=== PATIENT | male | born 1990 | race Caucasian/White ===

== ENCOUNTER 2018-08-02 03:05 | Emergency (ER) | payer OTHER, SELFPAY ==
[2018-07-02 09:33] VITALS: BMI 28.4
[2018-08-02 03:07] VITALS: BP 127/69; PULSE 49; RESP 19; TEMP 36.4; O2SAT 100; BMI 29.1
--- NOTE | 2018-08-02 03:11 | CT_ITS ---
STUDY: CT BRAIN WITHOUT CONTRAST REASON FOR EXAM: Male, 28 years old. Head injury. Hematoma of the posterior head. RADIATION DOSAGE (If Supplied By Facility): CTDIvol = ( 44.99 ) mGy, DLP = ( 779.24 ) mGycm TECHNIQUE: Transaxial CT imaging of the brain was performed without administration of intravenous contrast material. Individualized dose optimization techniques were used for this CT. COMPARISON: None. FINDINGS: There is a posterior scalp hematoma. Normal calvarium. Normal size ventricles and extra-axial spaces for the patient's age. Normal white matter tracts of the cerebral hemispheres. Normal basal ganglia and thalami. Normal brainstem. Normal cerebellum. There is no intracranial hemorrhage. There are no findings of an acute ischemic infarction. Normal visualized paranasal sinuses. CT/Brain/Head without Contrast IMPRESSION: Normal unenhanced CT scan of the brain. Electronically Signed: Oswaldo Robertson MD at 3:53 EST , Service support ,
--- NOTE | 2018-08-02 03:12 | EKG12_ITS ---
Test Reason : SYNCOPE Blood Pressure : / mmHG Vent. Rate : 048 BPM Atrial Rate : 048 BPM P-R Int : 188 ms QRS Dur : 102 ms QT Int : 458 ms P-R-T Axes : 035 033 023 degrees QTc Int : 409 ms Sinus bradycardia RSR' or QR pattern in V1 suggests right ventricular conduction delay Borderline ECG Confirmed by CHARI LOTT, PANCHO ([id number]), story editor TREV MALONEY ([id number]) on 08/05/2018 8:16:31 AM Referred By: HEIDY Confirmed By:PANCHO MARCELINO MD
--- NOTE | 2018-08-02 03:17 | ED.DCSUM_ITS ---
- ER Visit Summary Date of Service: 08/02/18 Chief Complaint: [] Syncope with head injury History of Present Illness: The patient is a 28 M who had a syncopal episode just prior to arrival. His is giving to their baby upstairs. He was standing next to her holding her leg when she started to push. He got lightheaded and passed out hit the back of his head on the ground. He has had this happen before. 2 weeks ago when he got into the shower after doing the driveway he had a lightheaded episode and passed out. He stated that IV starts and blood draws also make him lightheaded. He is never been diagnosed with vasovagal syncope. He is never had had it happen otherwise. Currently he has some pain in the back of his head where he struck on the ground and suffered a goose egg. 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 No cardiac problems in the past. Physical Examination: [] Vital signs reviewed General: Well-nourished well-developed Head: Normocephalic goose egg hematoma the back of his head measuring 3 x 3 cm Eyes: Pupils equal round and reactive to light extraocular movements intact ENT: TMs clear no hemotympanum no trauma Neck: Nontender full range of motion Cardiovascular: Regular tachycardia with normal rhythm no murmurs normal S1-S2 Respiratory: No distress clear to auscultation bilaterally chest nontender Abdomen: Soft nontender nondistended normal bowel sounds no masses Back: Nontender no CVA tenderness Extremities: Nontender active range of motion ?4 extremities no trauma Skin: Normal color no trauma Neuro alert oriented cranial nerves II through XII intact normal strength sensation reflexes Test Results: [] Emergency Department Course and Treatment: [] EKG shows sinus bradycardia at a rate of 48. No acute blocks noted. CT head obtained. It is negative. Patient felt better after treatment ambulated well. He states his heart rate normally runs in the low 50s. He never gets lightheaded when he works out. I think he just had a vasovagal episode. He will follow-up with cardiology as an outpatient for his sinus bradycardia. Understands that he has to be careful due to his baseline sinus bradycardia Treatment Plan: [] Disposition: [] Impression: [] Vagal syncope Sinus bradycardia Scalp hematoma This note was generated with [employer] software. It may contain incorrect words, spelling, and punctuation that were not noted in review of the chart prior to signing ED Disposition - Plan for ED Patient: Referrals: Care Physician,No Primary [Primary Care Provider] -
[2018-08-02 03:35] LABS: Bedside Glucose 86 mg/dL (70-110)
--- NOTE | 2018-08-02 04:02 | ED.DEP ---
ED Disposition - Plan for ED Patient: Disposition: Home or Assisted Living Instructions: ED Syncope Vasovagal Referrals: Thai Bautista MD [STAFF PHYSICIAN] - Slick Umana MD [STAFF PHYSICIAN] -
--- NOTE | 2018-08-02 04:03 | ED.RN ---
TEST AMBULATED IN HALLWAY, DENIES DIZZINESS.
[2018-08-02] MEDS: Ibuprofen 400 MG Tablet 800 MG PO (04:08)
[2018-08-02 04:12] VITALS: BP 136/71; PULSE 45; RESP 16; O2SAT 100
== END 2018-08-02 04:12 | disposition home or self-care (01) ==
PROVIDERS: Emergency Provider Emergency Medicine
DX: R55 Syncope and collapse (principal); R00.1 Bradycardia, unspecified; S00.03XA Contusion of scalp, initial encounter; W19.XXXA Unspecified fall, initial encounter; Y93.9 Activity, unspecified; Y92.9 Unspecified place or not applicable; Y99.9 Unspecified external cause status
CPT/HCPCS: 70450; 82962; 93005; 99284

== ENCOUNTER → 2018-08-10 10:11 | Outpatient (CLI) | payer OTHER, SELFPAY ==
[2018-08-10 09:14] VITALS: BMI 29.7
--- NOTE | 2018-08-10 10:14 | ECHOD_ITS ---
Reason For Study: Syncope/Near Syncope Procedure This was a 2D Doppler, Color Flow transthoracic echocardiogram. Exam performed in department. Left Ventricle Normal LV size. Left ventricular systolic function is normal. The estimated ejection fraction is 60 %. No evidence for diastolic dysfunction. Right Ventricle Normal RV size. Normal systolic function. Atria Normal left atrium. Normal right atrium. Mitral Valve Equivocal mitral valve prolapse. Mild (1+) eccentric mitral valve insufficiency. Tricuspid Valve Normal tricuspid valve. Aortic Valve Normal aortic valve. Trisinus/trileaflet aortic valve. Pulmonic Valve Normal pulmonic valve. Great Vessels Normal aortic root. The pulmonary artery is normal size. Normal inferior vena cava. Pericardium/Pleural No pericardial effusion. MMode/2D Measurements & Calculations LVIDd: 5.4 cm IVSd: 1.1 cm Ao root diam: 2.5 cm LVIDs: 3.5 cm LVPWd: 1.1 cm RVDd: 4.9 cm FS: 35.8 % LAV(MOD-bp): 59.7 ml LVAd ap4: 39.7 cm2 SV(MOD-sp4): 83.3 ml LAV(MOD-bp) Indexed: 28.2 ml/m2 EDV(MOD-sp4): 145.2 ml LAV(MOD-sp2): 65.2 ml EDV(sp4-el): 147.1 ml LAV(MOD-sp4): 54.7 ml LVAs ap4: 23.6 cm2 ESV(MOD-sp4): 62.0 ml ESV(sp4-el): 64.4 ml EF(MOD-sp4): 57.3 % EF(sp4-el): 56.2 % SV(sp4-el): 82.7 ml LA A4 area: 19.3 cm2 LA dimension(2D): 3.5 cm RA A4 area: 20.9 cm2 Doppler Measurements & Calculations MV E max ashish: 89.2 cm/sec Lat Peak E' Ashish: 19.0 cm/sec Med Peak E' Ashish: 11.8 cm/sec MV A max ashish: 45.6 cm/sec E/E' lat: 4.7 E/E' med: 7.6 MV E/A: 2.0 Ao V2 max: 135.9 cm/sec LV V1 max: 122.5 cm/sec PA V2 max: 147.3 cm/sec Ao max P.4 mmHg LV V1 max P.0 mmHg PA V2 mean: 101.3 cm/sec Ao V2 mean: 99.4 cm/sec PA V2 VTI: 34.1 cm Ao mean P.3 mmHg Ao V2 VTI: 31.7 cm TR max ashish: 229.4 cm/sec TR max P.0 mmHg Interpretation Summary Normal LV size. Left ventricular systolic function is normal. The estimated ejection fraction is 60 %. No evidence for diastolic dysfunction. Equivocal mitral valve prolapse. Mild (1+) eccentric mitral valve insufficiency. Ordering Physician: Slick Umana Referring Physician: Slick Umana Performed By: Cinthia Veronica, REMBERTO, RVT
== END ==
PROVIDERS: Referring Provider Internal Medicine Cardiovascular Disease; Visit Provider Internal Medicine Cardiovascular Disease
DX: R55 Syncope and collapse (principal)
CPT/HCPCS: 93306

== ENCOUNTER → 2019-06-09 11:02 | Outpatient (CLI) | payer OTHER, SELFPAY ==
[2019-06-09 10:24] VITALS: BMI 29.7
[2019-06-09 13:30] LABS: Color, Urine Straw (Yellow); Glucose, Dipstick Normal (Normal); Ketone-Dipstick Negative (Negative); Leukocyte Esterase-Dipstick Negative /ul (Negative); Nitrite-Dipstick Negative (Negative); Occult Blood-Urine Negative /ul (Negative); Protein-Dipstick Negative (Negative); Urine Bilirubin Dipstick Negative (Negative); Urine Clarity Cloudy (Clear); Urine Urobilinogen Normal (Normal)
[2019-06-09 13:40] LABS: Hematocrit 42.1 % (40-54); Hemoglobin 13.2 g/dL (13.0-16.5); Mean Corp Hgb Conc 31.4 g/dL (32-36); Mean Corpuscular Volume 92.5 fL (80-94); Mean Platelet Vol. 12.3 fl (6.2-12.0); Platelet Count 225 K/mm3 (150-450); RBC Distribution Width CV 12.4 % (11.6-14.6); Red Blood Count 4.55 M/mm3 (4.6-6.2); White Blood Count 6.3 K/mm3 (4.4-11.0)
[2019-06-09 13:43] LABS: ALB/GLOB Ratio 1.4 RATIO (0.9-2.4); AST(SGOT) 28 U/L (15-37); Alanine Aminotransfer ALT/SGPT 38 U/L (16-61); Albumin, Serum 4.1 g/dL (3.2-5.0); Alkaline Phosphatase 76 U/L (45-117); Anion Gap 1 (5-15); BUN 16 mg/dL (7-18); BUN/Creat Ratio 17.8 RATIO (10-20); Calcium,Total 9.2 mg/dL (8.5-10.1); Chloride 110 mmol/L (98-107); EST Glomerular Filtration Rate 107 mL/min (>60); Est Glom Filt Rate - Afr Amer 130 mL/min (>60); Glucose 88 mg/dL (74-106); Potassium 4.7 mmol/L (3.5-5.1); Protein, Total 7.1 g/dL (6.4-8.2); Sodium Level 143 mmol/L (136-145)
[2019-06-09 13:45] LABS: Amphetamine Urine VISTA NEGATIVE (<1000 ng/mL); Barbiturate Urine VISTA NEGATIVE (< 200 ng/mL); Benzodiazepine Urine VISTA NEGATIVE (< 200 ng/mL); Cocaine Urine VISTA NEGATIVE (< 300 ng/mL); Ecstacy Urine VISTA NEGATIVE (< 500 ng/mL); Methadone Urine VISTA NEGATIVE (< 300 ng/mL); PCP Urine VISTA NEGATIVE (< 25 ng/mL); THC Urine VISTA NEGATIVE (< 50 ng/mL); Vista UDS pH Range 5
[2019-06-09 13:56] LABS: Alcohol, Blood (Medical)-Serum < 3.0 mg/dL
[2019-06-09 13:56] LABS: Mucous, Urine 0 SEEN /hpf (<or=2+); Red Blood Cells-Urine 0 SEEN /hpf (0-5); Squamous Epithelial Cells - UA 0 SEEN /hpf (0-5); White Blood Cells 0 SEEN /hpf (0-5)
[2019-06-09 13:57] LABS: Amorphous Sediment 4+; Bacteria 4+ /hpf (None Seen)
[2019-06-09 14:29] LABS: HIV - WCH Non-Reactive (Nonreactive)
== END ==
PROVIDERS: PCP Internal Medicine; Visit Provider Nurse Practitioner Family
DX: Z00.00 Encounter for general adult medical examination without abnormal findings (principal)
CPT/HCPCS: 36415; 80053; 80307; 80320; 81001; 85027; 86703; G0480

== ENCOUNTER → 2024-02-03 | Outpatient (CLI) | payer OTHER, SELFPAY ==
[2024-02-03 12:44] LABS: Absolute Lymphocyte Count 1.72 X10^3/uL (0.83-4.51); Absolute Neutrophil Count 3.2 X10^3/uL (2.0-7.7); Basophil# 0.07 X10^3/uL; Basophil% 1.2 % (0-1); Eosinophil# 0.08 X10^3/uL; Eosinophils% 1.4 % (0-5); Hematocrit 43.1 % (40-54); Hemoglobin 13.6 g/dL (13.0-16.5); Lymphocyte # 1.72 X10^3/ul (0.83-4.51); Lymphocyte % 29.6 % (19-41); Mean Corp Hgb Conc 31.6 g/dL (32-36); Mean Corpuscular Hgb 28.5 pg (27.0-32.0); Mean Corpuscular Volume 90.2 fL (80-94); Monocyte# 0.76 X10^3/uL; Monocyte% 13.1 % (0-10); NRBC Flagged by Analyzer 0 % (0-5); Neutrophil # 3.17 X10^3/uL (2.7-7.7); Neutrophil % 54.5 % (47-70); Platelet Count 208 K/mm3 (150-450); RBC Distribution Width CV 12.6 % (11.6-14.6); RBC Distribution Width SD 41.9 fl (35.1-43.9); Red Blood Count 4.78 M/mm3 (4.6-6.2); White Blood Count 5.8 K/mm3 (4.4-11.0)
[2024-02-03 13:04] LABS: AST(SGOT) 44 U/L (15-37); Alanine Aminotransfer ALT/SGPT 44 U/L (16-61); Albumin, Serum 3.8 g/dL (3.2-5.0); Alkaline Phosphatase 65 U/L (45-117); Anion Gap 7 (5-15); BUN 16 mg/dL (7-18); BUN/Creat Ratio 18.8 RATIO (10-20); Calcium,Total 9.4 mg/dL (8.5-10.1); Chloride 106 mmol/L (98-107); Cholesterol 175 mg/dL (200); Creatinine, Serum 0.85 mg/dL (0.70-1.30); EST Glomerular Filtration Rate 111 mL/min (>60); Est Glom Filt Rate - Afr Amer 134 mL/min (>60); Globulin 3.7 g/dL (2.2-4.2); Glucose 102 mg/dL (74-106); High Density Lipoprotein 71 mg/dL; Potassium 4.3 mmol/L (3.5-5.1); Protein, Total 7.5 g/dL (6.4-8.2); Sodium Level 139 mmol/L (136-145); Triglycerides 42 mg/dL; Very Low Density Lipoprotein 8 mg/dL (5-40)
[2024-02-03 14:09] LABS: Hemoglobin A1c 5.5 % (3.8-5.6)
[2024-02-03 14:57] LABS: Vitamin B12 722 pg/mL (211-911)
[2024-02-09 12:09] LABS: Testosterone, % Free 2.35 % (1.50-4.20); Testosterone, Free 11.23 ng/dL (5.00-21.00); Testosterone, Total 478 ng/dL (264-916)
== END | disposition home or self-care (01) ==
LOC: VSLAB 09:21
PROVIDERS: PCP Family Medicine; Visit Provider Family Medicine
DX: R53.83 Other fatigue (principal); Z13.6 Encounter for screening for cardiovascular disorders; Z13.228 Encounter for screening for other metabolic disorders
CPT/HCPCS: 36415; 80053; 80061; 82306; 82607; 83036; 84402; 84403; 84443; 85025

== ENCOUNTER → 2024-03-22 | Outpatient (CLI) | payer OTHER, SELFPAY ==
[2024-03-22 13:04] LABS: Vitamin B12 1117 pg/mL (211-911); Vitamin D,25 Hydroxy 47.2 ng/mL
[2024-03-22 13:05] LABS: Hemoglobin A1c 5.5 % (3.8-5.6)
[2024-03-22 13:06] LABS: Absolute Lymphocyte Count 1.79 X10^3/uL (0.83-4.51); Absolute Neutrophil Count 3.5 X10^3/uL (2.0-7.7); Basophil# 0.09 X10^3/uL; Basophil% 1.5 % (0-1); Eosinophil# 0.08 X10^3/uL; Eosinophils% 1.3 % (0-5); Hematocrit 42.7 % (40-54); Hemoglobin 13.8 g/dL (13.0-16.5); Lymphocyte # 1.79 X10^3/ul (0.83-4.51); Lymphocyte % 29.2 % (19-41); Mean Corp Hgb Conc 32.3 g/dL (32-36); Mean Corpuscular Hgb 28.8 pg (27.0-32.0); Mean Corpuscular Volume 89.1 fL (80-94); Mean Platelet Vol. 14.7 fl (6.2-12.0); Monocyte# 0.67 X10^3/uL; Monocyte% 10.9 % (0-10); NRBC Flagged by Analyzer 0 % (0-5); Neutrophil % 56.9 % (47-70); Platelet Count 177 K/mm3 (150-450); RBC Distribution Width CV 12.7 % (11.6-14.6); RBC Distribution Width SD 41.5 fl (35.1-43.9); Red Blood Count 4.79 M/mm3 (4.6-6.2); White Blood Count 6.1 K/mm3 (4.4-11.0)
[2024-03-22 13:18] LABS: ALB/GLOB Ratio 1.3 RATIO (0.9-2.4); AST(SGOT) 28 U/L (15-37); Alanine Aminotransfer ALT/SGPT 29 U/L (16-61); Albumin, Serum 4.3 g/dL (3.2-5.0); Alkaline Phosphatase 68 U/L (45-117); Anion Gap 6 (5-15); BUN 23 mg/dL (7-18); BUN/Creat Ratio 22.5 RATIO (10-20); Calcium,Total 9.8 mg/dL (8.5-10.1); Chloride 105 mmol/L (98-107); Cholesterol 211 mg/dL (200); Creatinine, Serum 1.02 mg/dL (0.70-1.30); EST Glomerular Filtration Rate 89 mL/min (>60); Est Glom Filt Rate - Afr Amer 108 mL/min (>60); Globulin 3.2 g/dL (2.2-4.2); Glucose 104 mg/dL (74-106); High Density Lipoprotein 70 mg/dL; Potassium 4.1 mmol/L (3.5-5.1); Protein, Total 7.5 g/dL (6.4-8.2); Sodium Level 137 mmol/L (136-145); Triglycerides 43 mg/dL; Very Low Density Lipoprotein 9 mg/dL (5-40)
[2024-03-28 01:07] LABS: Testosterone, Free 9.94 ng/dL (5.00-21.00); Testosterone, Total 414 ng/dL (264-916)
== END | disposition home or self-care (01) ==
LOC: VSLAB 10:25
PROVIDERS: PCP Family Medicine; Visit Provider Family Medicine
DX: R53.83 Other fatigue (principal); Z13.228 Encounter for screening for other metabolic disorders
CPT/HCPCS: 36415; 80053; 80061; 82306; 82607; 83036; 84402; 84403; 84443; 85025

== ENCOUNTER 2024-12-09 08:11 | Emergency (ER) | payer OTHER, SELFPAY ==
[2024-12-09 08:12] VITALS: BP 147/89; PULSE 79; RESP 14; TEMP 36.6; O2SAT 98; BMI 36.1
[2024-12-09 08:41] LABS: Absolute Lymphocyte Count 1.91 X10^3/uL (0.83-4.51); Absolute Neutrophil Count 3.7 X10^3/uL (2.0-7.7); Basophil# 0.09 X10^3/uL; Basophil% 1.3 % (0-1); Eosinophil# 0.11 X10^3/uL; Eosinophils% 1.6 % (0-5); Hematocrit 40.9 % (40-54); Hemoglobin 13.7 g/dL (13.0-16.5); Lymphocyte # 1.91 X10^3/ul (0.83-4.51); Lymphocyte % 28.6 % (19-41); Mean Corp Hgb Conc 33.5 g/dL (32-36); Mean Corpuscular Hgb 29.8 pg (27.0-32.0); Mean Corpuscular Volume 89.1 fL (80-94); Mean Platelet Vol. 12.6 fl (6.2-12.0); NRBC Flagged by Analyzer 0 % (0-5); Neutrophil # 3.74 X10^3/uL (2.7-7.7); Neutrophil % 56.2 % (47-70); Platelet Count 209 K/mm3 (150-450); RBC Distribution Width CV 12.8 % (11.6-14.6); Red Blood Count 4.59 M/mm3 (4.6-6.2); White Blood Count 6.7 K/mm3 (4.4-11.0)
--- OUTSIDE RECORDS SUMMARY | 2024-12-09 08:46 | XMS RPT_ITS | CCD ---
Author Organization [facility] Care Team Providers Care [employer]way Rep[employer] Supervisor Name Role Phone Rocio Harry Attending Unavailable Rocio Harry Primary Care Unavailable Rocio Harry Attending Unavailable Rocio Harry Primary Care Unavailable Problems Problem Classification Problem Date Documented Da te Episodic/Chronic Malaise and fatigue (1 source) Other fatigue; Translations: [Other fatigue] Onset: 04-07-2024 Episodic Results Test Name Value Interpretation Reference Range Facil ity Testosterone, Total / Freeon 03-28-2024 TESTOSTER,FREE 9.94 ng/dL Normal 5.00-21.00 [facility] Comment on above: Order Comment: N Performed By: #### L 500.4050, L3100.5310, L501.9985, L503.0105, L500.4100, L100.0100, L506.1000, L501.9520 #### [facility] [address] [place], [address] TESTOSTERONE, T 414 ng/dL Normal 264-916 [facility] Comment on above: Order Comment: N Result Comment: Adul t male reference interval is based on a population of healthy nonobese males (BMI <30) between 19 and 39 years old. [place] et.al. JCEM 2017,102;2127-8327. PMID: 60737747. Performed By: #### L 500.4050, L3100.5310, L501.9985, L503.0105, L500.4100, L100.0100, L506.1000, L501.9520 #### [facility] [address] [place], [address] TESTOSTERONE,%F 2.40 Normal 1.50-4.20 [facility] Comment on above: Order Comment: N Result Comment: Perf ormed at: [facility] [address] [id number] Plate Setter: Jorge Joseph PhD, Phone: [phone] Performed at: - [facility] [id number] Plate Setter: Eryn Du MD, Phone: [phone] Performed By: #### L 500.4050, L3100.5310, L501.9985, L503.0105, L500.4100, L100.0100, L506.1000, L501.9520 #### [facility] [address] [facility] [place], [address] CBC W/Diff, Automatedon 10-0 -2023 Absolute Lymph 1.79 X10 3/uL Normal 0.83-4.51 [facility] Comment on above: Performed By: #### L 500.4050, L3100.5310, L501.9985, L503.0105, L500.4100, L100.0100, L506.1000, L501.9520 #### [facility] [address] [facility] [place], [address] Absolute Neut 3.5 X10 3/uL Normal 2.0-7.7 [facility] Comment on above: Performed By: #### L 500.4050, L3100.5310, L501.9985, L503.0105, L500.4100, L100.0100, L506.1000, L501.9520 #### [facility] [address] [place], [address] (451) Basophils/100 WBC (Bld) 1.5 % High 0-1 [facility] Comment on above: Performed By: #### L 500.4050, L3100.5310, L501.9985, L503.0105, L500.4100, L100.0100, L506.1000, L501.9520 #### [facility] [address] [place], [address] Eosinophils/100 WBC (Bld) 1.3 % Normal 0-5 [facility] Comment on above: Performed By: #### L 500.4050, L3100.5310, L501.9985, L503.0105, L500.4100, L100.0100, L506.1000, L501.9520 #### [facility] [address] [place], [address] Erythrocyte distribution width (RBC) [Ratio] 12.7 % Normal 11.6-14.6 [facility] Comment on above: Performed By: #### L 500.4050, L3100.5310, L501.9985, L503.0105, L500.4100, L100.0100, L506.1000, L501.9520 #### [facility] [address] [place], [address] Hematocrit (Bld) [Volume fraction] 42.7 % Normal 40-54 [facility] Comment on above: Performed By: #### L 500.4050, L3100.5310, L501.9985, L503.0105, L500.4100, L100.0100, L506.1000, L501.9520 #### [facility] [address] [place], [address] Hemoglobin (Bld) [Mass/Vol] 13.8 g/dL Normal 13.0-16.5 [facility] Comment on above: Performed By: #### L 500.4050, L3100.5310, L501.9985, L503.0105, L500.4100, L100.0100, L506.1000, L501.9520 #### [facility] [address] [place], [address] IG% 0.200 Normal 0.0-0.9 [facility] Comment on above: Result Comment: IG% - Immature Granulocytes (promyelocytes, myelocytes and metamyelocytes) > 1% indicates that a LEFT SHIFT is Present. Performed By: #### L 500.4050, L3100.5310, L501.9985, L503.0105, L500.4100, L100.0100, L506.1000, L501.9520 #### [facility] [address] [place], [address] Lymphocytes/100 WBC (Bld) 29.2 % Normal 19-41 [facility] Comment on above: Performed By: #### L 500.4050, L3100.5310, L501.9985, L503.0105, L500.4100, L100.0100, L506.1000, L501.9520 #### [facility] [address] [place], [address] MCH (RBC) [Entitic mass] 28.8 pg Normal 27.0-32.0 [facility] Comment on above: Performed By: #### L 500.4050, L3100.5310, L501.9985, L503.0105, L500.4100, L100.0100, L506.1000, L501.9520 #### [facility] [address] [place], [address] MCHC (RBC) [Mass/Vol] 32.3 g/dL Normal 32-36 [facility] Comment on above: Performed By: #### L 500.4050, L3100.5310, L501.9985, L503.0105, L500.4100, L100.0100, L506.1000, L501.9520 #### [facility] [address] [place], [address] MCV (RBC) [Entitic vol] 89.1 fL Normal 80-94 [facility] Comment on above: Performed By: #### L 500.4050, L3100.5310, L501.9985, L503.0105, L500.4100, L100.0100, L506.1000, L501.9520 #### [facility] [address] [place], [address] Monocytes/100 WBC (Bld) 10.9 % High 0-10 [facility] Comment on above: Performed By: #### L 500.4050, L3100.5310, L501.9985, L503.0105, L500.4100, L100.0100, L506.1000, L501.9520 #### [facility] [address] [place], [address] Neutrophils/100 WBC (Bld) 56.9 % Normal 47-70 [facility] Comment on above: Performed By: #### L 500.4050, L3100.5310, L501.9985, L503.0105, L500.4100, L100.0100, L506.1000, L501.9520 #### [facility] [address] [place], [address] Nucleated RBC (Bld) [#/Vol] 0 10*3/uL Normal 0-5 [facility] Comment on above: Performed By: #### L 500.4050, L3100.5310, L501.9985, L503.0105, L500.4100, L100.0100, L506.1000, L501.9520 #### [facility] [address] [place], [address] Platelet mean volume (Bld) [Entitic vol] 14.7 fL High 6.2-12.0 [facility] Comment on above: Performed By: #### L 500.4050, L3100.5310, L501.9985, L503.0105, L500.4100, L100.0100, L506.1000, L501.9520 #### [facility] [address] [place], [address] Platelets (Bld) [#/Vol] 177 10*3/uL Normal 150-450 [facility] Comment on above: Performed By: #### L 500.4050, L3100.5310, L501.9985, L503.0105, L500.4100, L100.0100, L506.1000, L501.9520 #### [facility] [address] [place], [address] RBC (Bld) [#/Vol] 4.79 10*6/uL Normal 4.6-6.2 [facility] Comment on above: Performed By: #### L 500.4050, L3100.5310, L501.9985, L503.0105, L500.4100, L100.0100, L506.1000, L501.9520 #### [facility] [address] [place], [address] RDW SD 41.5 fl Normal 35.1-43.9 [facility] Comment on above: Performed By: #### L 500.4050, L3100.5310, L501.9985, L503.0105, L500.4100, L100.0100, L506.1000, L501.9520 #### [facility] [address] [place], [address] WBC (Bld) [#/Vol] 6.1 10*3/uL Normal 4.4-11.0 [facility] Comment on above: Performed By: #### L 500.4050, L3100.5310, L501.9985, L503.0105, L500.4100, L100.0100, L506.1000, L501.9520 #### [facility] [address] [place], [address] Comprehensive Metabolic Prof ilon 03-22-2024 Bilirubin [Mass/Vol] 0.40 mg/dL Normal 0.20-1.00 [facility] Comment on above: Result Comment: For patients on eltrombopag therapy, use of Dimension [place] TBIL is not recommended. AMENDED REPORT 03/22/24 1547 T BILI previously reported as: 9.40 H mg/dL For patients on eltrombopag therapy, use of Dimension [place] TBIL is not recommended. For patients on eltrombopag therapy, use of Dimension [place] TBIL is not recommended. Performed By: #### L 500.4050, L3100.5310, L501.9985, L503.0105, L500.4100, L100.0100, L506.1000, L501.9520 #### [facility] [address] [place], [address] Hemoglobin A1con 03-22-2024 HbA1c (Bld) [Mass fraction] 5.5 % Normal 3.8-5.6 [facility] Comment on above: Result Comment: Norm al < 5.7 % Prediabetic 5.7 - 6.4 % Diabetic >or= 6.5 % Please note range changes. Performed By: #### L 500.4050, L3100.5310, L501.9985, L503.0105, L500.4100, L100.0100, L506.1000, L501.9520 #### [facility] [address] [place], [place], [id number] Lipid Profileon 03-22-2024 Cholesterol [Mass/Vol] 211 mg/dL High 200 [facility] Comment on above: Result Comment: <200 mg/dL Desirable 200-240 mg/dL Borderline >240 mg/dL High Risk Performed By: #### L 500.4050, L3100.5310, L501.9985, L503.0105, L500.4100, L100.0100, L506.1000, L501.9520 #### [facility] [address] [place], [place], [id number] Cholesterol in HDL [Mass/Vol] 70 mg/dL Normal [facility] Comment on above: Result Comment: The drugs N-Acetylcysteine and Metamizole may falsely depress this assay. Reference Range HDL <40 mg/dL Low HDL Cholesterol HDL >or= 60 mg/dL High HDL Cholesterol Performed By: #### L 500.4050, L3100.5310, L501.9985, L503.0105, L500.4100, L100.0100, L506.1000, L501.9520 #### [facility] [address] [place], [address] Cholesterol in LDL [Mass/Vol] 132 mg/dL High 0-130 [facility] Comment on above: Performed By: #### L 500.4050, L3100.5310, L501.9985, L503.0105, L500.4100, L100.0100, L506.1000, L501.9520 #### [facility] [address] [place], [place], [id number] Cholesterol in VLDL [Mass/Vol] 9 mg/dL Normal 5-40 [facility] Comment on above: Performed By: #### L 500.4050, L3100.5310, L501.9985, L503.0105, L500.4100, L100.0100, L506.1000, L501.9520 #### [facility] [address] [place], [address] Triglyceride [Mass/Vol] 43 mg/dL Normal [facility] Comment on above: Result Comment: The drugs N-Acetylcysteine and Metamizole may falsely depress this assay. Serum Triglycerides Reference Interval Normal <150 mg/dL Borderline high 150 - 199 mg/dL High 200 - 499 mg/dL Very High > or = 500 mg/dL Performed By: #### L 500.4050, L3100.5310, L501.9985, L503.0105, L500.4100, L100.0100, L506.1000, L501.9520 #### [facility] [address] [place], [address] Thyroid Stim Hormone (TSH)on 03-22-2024 TSH 2.890 uIU/mL Normal 0.358-3.740 [facility] Comment on above: Performed By: #### L 500.4050, L3100.5310, L501.9985, L503.0105, L500.4100, L100.0100, L506.1000, L501.9520 #### [facility] [address] [place], [place], [id number] Vitamin B12on 03-22-2024 Cobalamin (Vitamin B12) [Mass/Vol] 1117 pg/mL High 211-911 [facility] Comment on above: Performed By: #### L 501.9985, L501.9520, L3100.5310, L100.0100, L500.4050, L506.1000, L500.4100, L503.0105 #### [facility] [address] [place], [place], [id number] Vitamin D,25 Hydroxyon 03-22 Vitamin D 25-OH 47.2 ng/mL Normal [facility] Comment on above: Result Comment: Margareth min D 25(OH) Status Range Deficiency <20 ng/mL (50nmol/L) Insufficiency 20 - 30 ng/mL (50 - 75 nmol/L) Sufficiency 30 - 100 ng/mL (75 - 250 nmol/L) Toxicity >100 ng/mL (>250 nmol/L) Performed By: #### L 501.9985, L501.9520, L3100.5310, L100.0100, L500.4050, L506.1000, L500.4100, L503.0105 #### [facility] [address] [place], [place], [id number] Testosterone, Total / Freeon 02-09-2024 TESTOSTER,FREE 11.23 ng/dL Normal 5.00-21.00 [facility] Comment on above: Order Comment: N Performed By: #### L 500.4050, L3100.5310, L501.9985, L503.0105, L500.4100, L100.0100, L506.1000, L501.9520 #### [facility] [address] [place], [place], [id number] TESTOSTERONE, T 478 ng/dL Normal 264-916 [facility] Comment on above: Order Comment: N Result Comment: Adul t male reference interval is based on a population of healthy nonobese males (BMI <30) between 19 and 39 years old. estrella Duncan.al. JCEM 2017,102;1863-0519. PMID: [id number]. Performed By: #### L 500.4050, L3100.5310, L501.9985, L503.0105, L500.4100, L100.0100, L506.1000, L501.9520 #### [facility] [address] [place], [address] TESTOSTERONE,%F 2.35 Normal 1.50-4.20 [facility] Comment on above: Order Comment: N Result Comment: Perf ormed at: - [facility] [id number] Plate Setter: Jorge Joseph PhD, Phone: [phone] Performed at: - [facility] [id number] Plate Setter: Eryn Du MD, Phone: [phone] Performed By: #### L 500.4050, L3100.5310, L501.9985, L503.0105, L500.4100, L100.0100, L506.1000, L501.9520 #### [facility] [address] [place], [place], [id number] CBC W/Diff, Automatedon 01-19 Absolute Lymph 1.72 X10 3/uL Normal 0.83-4.51 [facility] Comment on above: Performed By: #### L 500.4050, L3100.5310, L501.9985, L503.0105, L500.4100, L100.0100, L506.1000, L501.9520 #### [facility] [address] [place], [address] Absolute Neut 3.2 X10 3/uL Normal 2.0-7.7 [facility] Comment on above: Performed By: #### L 500.4050, L3100.5310, L501.9985, L503.0105, L500.4100, L100.0100, L506.1000, L501.9520 #### [facility] [address] [place], [address] Basophils/100 WBC (Bld) 1.2 % High 0-1 [facility] Comment on above: Performed By: #### L 500.4050, L3100.5310, L501.9985, L503.0105, L500.4100, L100.0100, L506.1000, L501.9520 #### [facility] [address] [place], [address] Eosinophils/100 WBC (Bld) 1.4 % Normal 0-5 [facility] Comment on above: Performed By: #### L 500.4050, L3100.5310, L501.9985, L503.0105, L500.4100, L100.0100, L506.1000, L501.9520 #### [facility] [address] [place], [address] Erythrocyte distribution width (RBC) [Ratio] 12.6 % Normal 11.6-14.6 [facility] Comment on above: Performed By: #### L 500.4050, L3100.5310, L501.9985, L503.0105, L500.4100, L100.0100, L506.1000, L501.9520 #### [facility] [address] [place], [address] Hematocrit (Bld) [Volume fraction] 43.1 % Normal 40-54 [facility] Comment on above: Performed By: #### L 500.4050, L3100.5310, L501.9985, L503.0105, L500.4100, L100.0100, L506.1000, L501.9520 #### [facility] [address] [place], [address] Hemoglobin (Bld) [Mass/Vol] 13.6 g/dL Normal 13.0-16.5 [facility] Comment on above: Performed By: #### L 500.4050, L3100.5310, L501.9985, L503.0105, L500.4100, L100.0100, L506.1000, L501.9520 #### [facility] [address] [place], [address] IG% 0.200 Normal 0.0-0.9 [facility] Comment on above: Result Comment: IG% - Immature Granulocytes (promyelocytes, myelocytes and metamyelocytes) > 1% indicates that a LEFT SHIFT is Present. Performed By: #### L 500.4050, L3100.5310, L501.9985, L503.0105, L500.4100, L100.0100, L506.1000, L501.9520 #### [facility] [address] [place], [address] Lymphocytes/100 WBC (Bld) 29.6 % Normal 19-41 [facility] Comment on above: Performed By: #### L 500.4050, L3100.5310, L501.9985, L503.0105, L500.4100, L100.0100, L506.1000, L501.9520 #### [facility] [address] [place], [address] MCH (RBC) [Entitic mass] 28.5 pg Normal 27.0-32.0 [facility] Comment on above: Performed By: #### L 500.4050, L3100.5310, L501.9985, L503.0105, L500.4100, L100.0100, L506.1000, L501.9520 #### [facility] [address] [place], [address] MCHC (RBC) [Mass/Vol] 31.6 g/dL Low 32-36 [facility] Comment on above: Performed By: #### L 500.4050, L3100.5310, L501.9985, L503.0105, L500.4100, L100.0100, L506.1000, L501.9520 #### [facility] [address] [place], [address] MCV (RBC) [Entitic vol] 90.2 fL Normal 80-94 [facility] Comment on above: Performed By: #### L 500.4050, L3100.5310, L501.9985, L503.0105, L500.4100, L100.0100, L506.1000, L501.9520 #### [facility] [address] [place], [address] Monocytes/100 WBC (Bld) 13.1 % High 0-10 [facility] Comment on above: Performed By: #### L 500.4050, L3100.5310, L501.9985, L503.0105, L500.4100, L100.0100, L506.1000, L501.9520 #### [facility] [address] [place], [address] Neutrophils/100 WBC (Bld) 54.5 % Normal 47-70 [facility] Comment on above: Performed By: #### L 500.4050, L3100.5310, L501.9985, L503.0105, L500.4100, L100.0100, L506.1000, L501.9520 #### [facility] [address] [place], [address] Nucleated RBC (Bld) [#/Vol] 0 10*3/uL Normal 0-5 [facility] Comment on above: Performed By: #### L 500.4050, L3100.5310, L501.9985, L503.0105, L500.4100, L100.0100, L506.1000, L501.9520 #### [facility] [address] [place], [address] Platelet mean volume (Bld) [Entitic vol] 13.0 fL High 6.2-12.0 [facility] Comment on above: Performed By: #### L 500.4050, L3100.5310, L501.9985, L503.0105, L500.4100, L100.0100, L506.1000, L501.9520 #### [facility] [address] [place], [address] Platelets (Bld) [#/Vol] 208 10*3/uL Normal 150-450 [facility] Comment on above: Performed By: #### L 500.4050, L3100.5310, L501.9985, L503.0105, L500.4100, L100.0100, L506.1000, L501.9520 #### [facility] [address] [place], [address] RBC (Bld) [#/Vol] 4.78 10*6/uL Normal 4.6-6.2 [facility] Comment on above: Performed By: #### L 500.4050, L3100.5310, L501.9985, L503.0105, L500.4100, L100.0100, L506.1000, L501.9520 #### [facility] [address] [place], [address] RDW SD 41.9 fl Normal 35.1-43.9 [facility] Comment on above: Performed By: #### L 500.4050, L3100.5310, L501.9985, L503.0105, L500.4100, L100.0100, L506.1000, L501.9520 #### [facility] [address] [place], [place], [id number] WBC (Bld) [#/Vol] 5.8 10*3/uL Normal 4.4-11.0 [facility] Comment on above: Performed By: #### L 500.4050, L3100.5310, L501.9985, L503.0105, L500.4100, L100.0100, L506.1000, L501.9520 #### [facility] [address] [place], [address] Comprehensive Metabolic Prof [facility] 02-03-2024 Albumin [Mass/Vol] 3.8 g/dL Normal 3.2-5.0 [facility] Comment on above: Performed By: #### L 500.4050, L3100.5310, L501.9985, L503.0105, L500.4100, L100.0100, L506.1000, L501.9520 #### [facility] [address] [place], [place], [id number] [phone] Albumin/Globulin [Mass ratio] 1.0 {ratio} Normal 0.9-2.4 [facility] Comment on above: Performed By: #### L 500.4050, L3100.5310, L501.9985, L503.0105, L500.4100, L100.0100, L506.1000, L501.9520 #### [facility] [address] [place], [place], [id number] ALK P 65 U/L Normal 45-117 [facility] Comment on above: Performed By: #### L 500.4050, L3100.5310, L501.9985, L503.0105, L500.4100, L100.0100, L506.1000, L501.9520 #### [facility] [address] [place], [address] ALT [Catalytic activity/Vol] 44 U/L Normal 16-61 [facility] Comment on above: Performed By: #### L 500.4050, L3100.5310, L501.9985, L503.0105, L500.4100, L100.0100, L506.1000, L501.9520 #### [facility] [address] [place], [address] AST [Catalytic activity/Vol] 44 U/L High 15-37 [facility] Comment on above: Performed By: #### L 500.4050, L3100.5310, L501.9985, L503.0105, L500.4100, L100.0100, L506.1000, L501.9520 #### [facility] [address] [place], [address] Bilirubin [Mass/Vol] 0.30 mg/dL Normal 0.20-1.00 [facility] Comment on above: Result Comment: For patients on eltrombopag therapy, use of Dimension [place] TBIL is not recommended. Performed By: #### L 500.4050, L3100.5310, L501.9985, L503.0105, L500.4100, L100.0100, L506.1000, L501.9520 #### [facility] [address] [place], [address] BUN/CRE 18.8 RATIO Normal 10-20 [facility] Comment on above: Performed By: #### L 500.4050, L3100.5310, L501.9985, L503.0105, L500.4100, L100.0100, L506.1000, L501.9520 #### [facility] [address] [place], [address] CA,Total 9.4 mg/dL Normal 8.5-10.1 [facility] Comment on above: Performed By: #### L 500.4050, L3100.5310, L501.9985, L503.0105, L500.4100, L100.0100, L506.1000, L501.9520 #### [facility] [address] [place], [address] Chloride [Moles/Vol] 106 mmol/L Normal 98-107 [facility] Comment on above: Performed By: #### L 500.4050, L3100.5310, L501.9985, L503.0105, L500.4100, L100.0100, L506.1000, L501.9520 #### [facility] [address] [place], [address] CO2 [Moles/Vol] 26.0 mmol/L Normal 21.0-32.0 [facility] Comment on above: Performed By: #### L 500.4050, L3100.5310, L501.9985, L503.0105, L500.4100, L100.0100, L506.1000, L501.9520 #### [facility] [address] [place], [address] Creatinine [Mass/Vol] 0.85 mg/dL Normal 0.70-1.30 [facility] Comment on above: Result Comment: The validity of the calculated GFR GFRAA in patients over 70 years has not been determined. Clinical correlation is essential. Performed By: #### L 500.4050, L3100.5310, L501.9985, L503.0105, L500.4100, L100.0100, L506.1000, L501.9520 #### [facility] [address] [place], [address] EST GFR - AA 134 mL/min Normal >60 [facility] Comment on above: Result Comment: Afri can Romanian GFR Calc Performed By: #### L 500.4050, L3100.5310, L501.9985, L503.0105, L500.4100, L100.0100, L506.1000, L501.9520 #### [facility] [address] [place], [address] GAP 7 Normal 5-15 [facility] Comment on above: Performed By: #### L 500.4050, L3100.5310, L501.9985, L503.0105, L500.4100, L100.0100, L506.1000, L501.9520 #### [facility] [address] [place], [address] GFR/1.73 sq M.predicted among non-blacks MDRD (S/P/Bld) [Vol rate/Area] 111 mL/min/{1.73_m2} Normal >60 [facility] Comment on above: Result Comment: Non- GFR Calc Performed By: #### L 500.4050, L3100.5310, L501.9985, L503.0105, L500.4100, L100.0100, L506.1000, L501.9520 #### [facility] [address] [place], [address] Globulin (S) [Mass/Vol] 3.7 g/dL Normal 2.2-4.2 [facility] Comment on above: Performed By: #### L 500.4050, L3100.5310, L501.9985, L503.0105, L500.4100, L100.0100, L506.1000, L501.9520 #### [facility] [address] [place], [address] Glucose [Mass/Vol] 102 mg/dL Normal 74-106 [facility] Comment on above: Result Comment: Fast ing Glucose result from 100 to 125 mg/dL suggests IMPAIRED HOMEOSTASIS per A.D.A. criteria. Performed By: #### L 500.4050, L3100.5310, L501.9985, L503.0105, L500.4100, L100.0100, L506.1000, L501.9520 #### [facility] [address] [place], [address] Potassium [Moles/Vol] 4.3 mmol/L Normal 3.5-5.1 [facility] Comment on above: Performed By: #### L 500.4050, L3100.5310, L501.9985, L503.0105, L500.4100, L100.0100, L506.1000, L501.9520 #### [facility] [address] [place], [address] Sodium [Moles/Vol] 139 mmol/L Normal 136-145 [facility] Comment on above: Performed By: #### L 500.4050, L3100.5310, L501.9985, L503.0105, L500.4100, L100.0100, L506.1000, L501.9520 #### [facility] [address] [place], [address] T PROT 7.5 g/dL Normal 6.4-8.2 [facility] Comment on above: Performed By: #### L 500.4050, L3100.5310, L501.9985, L503.0105, L500.4100, L100.0100, L506.1000, L501.9520 #### [facility] [facility] [address] [place], [address] Urea nitrogen [Mass/Vol] 16 mg/dL Normal 7-18 [facility] Comment on above: Performed By: #### L 500.4050, L3100.5310, L501.9985, L503.0105, L500.4100, L100.0100, L506.1000, L501.9520 #### [facility] [address] [place], [address] Hemoglobin A1con 02-03-2024 HbA1c (Bld) [Mass fraction] 5.5 % Normal 3.8-5.6 [facility] Comment on above: Result Comment: Norm al < 5.7 % Prediabetic 5.7 - 6.4 % Diabetic >or= 6.5 % Please note range changes. Performed By: #### L 500.4050, L3100.5310, L501.9985, L503.0105, L500.4100, L100.0100, L506.1000, L501.9520 #### [facility] [address] [place], [address] Lipid Profileon 02-03-2024 Cholesterol [Mass/Vol] 175 mg/dL Normal 200 [facility] Comment on above: Result Comment: <200 mg/dL Desirable 200-240 mg/dL Borderline >240 mg/dL High Risk Performed By: #### L 500.4050, L3100.5310, L501.9985, L503.0105, L500.4100, L100.0100, L506.1000, L501.9520 #### [facility] [address] [place], [address] Cholesterol in HDL [Mass/Vol] 71 mg/dL Normal [facility] Comment on above: Result Comment: The drugs N-Acetylcysteine and Metamizole may falsely depress this assay. Reference Range HDL <40 mg/dL Low HDL Cholesterol HDL >or= 60 mg/dL High HDL Cholesterol Performed By: #### L 500.4050, L3100.5310, L501.9985, L503.0105, L500.4100, L100.0100, L506.1000, L501.9520 #### [facility] [address] [place], [address] Cholesterol in LDL [Mass/Vol] 96 mg/dL Normal 0-130 [facility] Comment on above: Performed By: #### L 500.4050, L3100.5310, L501.9985, L503.0105, L500.4100, L100.0100, L506.1000, L501.9520 #### [facility] [address] [place], [address] Cholesterol in VLDL [Mass/Vol] 8 mg/dL Normal 5-40 [facility] Comment on above: Performed By: #### L 500.4050, L3100.5310, L501.9985, L503.0105, L500.4100, L100.0100, L506.1000, L501.9520 #### [facility] [address] [place], [address] Triglyceride [Mass/Vol] 42 mg/dL Normal [facility] Comment on above: Result Comment: The drugs N-Acetylcysteine and Metamizole may falsely depress this assay. Serum Triglycerides Reference Interval Normal <150 mg/dL Borderline high 150 - 199 mg/dL High 200 - 499 mg/dL Very High > or = 500 mg/dL Performed By: #### L 500.4050, L3100.5310, L501.9985, L503.0105, L500.4100, L100.0100, L506.1000, L501.9520 #### [facility] [address] [place], [place], [id number] [phone] Thyroid Stim Hormone (TSH)on 02-03-2024 TSH 1.910 uIU/mL Normal 0.358-3.740 [facility] Comment on above: Performed By: #### L 500.4050, L3100.5310, L501.9985, L503.0105, L500.4100, L100.0100, L506.1000, L501.9520 #### [facility] [address] [place], [place], [id number] [phone] Vitamin B12on 02-03-2024 Cobalamin (Vitamin B12) [Mass/Vol] 722 pg/mL Normal 211-911 [facility] Comment on above: Performed By: #### L 500.4050, L3100.5310, L501.9985, L503.0105, L500.4100, L100.0100, L506.1000, L501.9520 #### [facility] [address] [place], [place], [address] Vitamin D,25 Hydroxyon 02-02 Vitamin D 25-OH 47.0 ng/mL Normal [facility] Comment on above: Result Comment: Margareth min D 25(OH) Status Range Deficiency <20 ng/mL (50nmol/L) Insufficiency 20 - 30 ng/mL (50 - 75 nmol/L) Sufficiency 30 - 100 ng/mL (75 - 250 nmol/L) Toxicity >100 ng/mL (>250 nmol/L) Performed By: #### L 500.4050, L3100.5310, L501.9985, L503.0105, L500.4100, L100.0100, L506.1000, L501.9520 #### [facility] [address] [place], [address] PROGRESSon 09-14-2019 PROGRESS HNO ID: [id number] Author: Melinda Munoz) Nasr Service: ? Author Type: Physician Credit Support Specialist Type: Progress Notes Filed: 09/14/2019 11:08 AM Note Text: This Team Access Model visit is a virtual encounter. It required patient-provider interaction for the medical decision making as documented below. [employer] HIPAA secured video was used for evaluation of this patient. Telemedicine Evaluation for COVID-19 Infection SUBJECTIVE: Lis Keyes is an 29 year old who presents with an illness that began 4 day(s) ago and are improving since that time. Has the patient had any ill contacts? No Has the patient had contact with anyone confirmed with COVID-19 infection? No Does the patient have family with confirmed COVID-19 infection: No Not health care provider Does the patient have the following symptoms or signs? *Fever: (Temp 100.4F or greater) Yes *Coughing: No *Shortness of breath: No Nasal congestion: No Sore throat: No Muscle aches: Yes Decreased appetite: Yes Vomiting: No Diarrhea: Yes Signs of dehydration (low fluid intake or voiding, diarrhea, dry mucus membranes): No Decreased level of consciousness: No *Fever plus coughing or shortness of breath answered yes is considered high risk PATIENT'S HIGH RISK CATEGORY ASSESSMENT: No high risk factors OBJECTIVE: Patient sounds or appears ill: No Patient is not able to speak in complete sentences: No Patient has labored breathing: No Patient is audibly coughing: No ASSESSMENT/PLAN: See encounter diagnoses and orders for additional plan. Lis Keyes is an 29 year old who appears to have COVID-19 infection but is low risk and symptoms are mild. Recommend home isolation, supportive measures. This patient encounter involved the screening or treatment of novel coronavirus infection (COVID-19). SIGNATURE: Melinda Reynolds PA-C DATE: September 14, 2019 [facility] PROGRESS HNO ID: [id number] Author: Rosmery Diaz Service: ? Author Type: Nurse Practitioner Type: Progress Notes Filed: 09/14/2019 10:05 AM Note Text: Virtual visit unable to be completed, patient either disconnected or express care on demand visit canceled. Rosmery Diaz CNP [facility] PROGRESS HNO ID: [id number] Author: Rosmery Diaz Service: ? Author Type: Nurse Practitioner Type: Progress Notes Filed: 09/14/2019 9:59 AM Note Text: Virtual visit unable to be completed, patient either disconnected or express care on demand visit canceled. Rosmery Diaz CNP [facility] Encounters Encounter Date Encounter Type Care Provider Facility Start: 03-22-2024 End: 03-22-2024 [facility] Facility:[facility] Start: 02-03-2024 End: 02-03-2024 [facility] Facility:[facility] Payers Date Payer Category Payer Self-pay 2024 Unknown [id number] Unknown [id number] Unknown [id number] Summary Purpose Family History No Family History Records FoundNo Family History Records Found Advance Directives No Advanced Directives Records FoundNo Advanced Directives Records Found Additional Source Comments (unrecognized sect ion and content) No Status Records FoundNo Status Records Found INFORMATION SOURCE (unrecogn ized section and content) DATE CREATED AUTHOR 09/14/2019 [facility] DATE CREATED AUTHOR AUTHOR'S KEVIN ANTONIO 04/09/2024 [facility] FOR RECORDS PERTAINING TO PATIENTS WHO ARE OR HAVE BEEN ENROLLED IN A CHEMICAL DEPENDENCY/SUBSTANCEABUSE PROGRAM, SOME INFORMATION MAY BE OMITTED. This clinical summary was aggregated from multiple sources. Caution should be exercised in using it in the provision of clinical care. This summary normalizes information from multiple sources, and as a consequence, information in this document may materially change the coding, format and clinical context of patient data. In addition, data may be omitted in some cases. CLINICAL DECISIONS SHOULD BE BASED ON THE PRIMARY CLINICAL RECORDS. [employer] provides no warranty or guarantee of the accuracy or completeness of information in this document.
--- NOTE | 2024-12-09 08:48 | EDS_ITS ---
HPI History of Present Illness Chief Complaint: Confusion Detail of Chief Complaint: Confusion which patient finances flash forward and increased sexual urges Informant: patient Onset/Context/Timing Onset: Days (Since Father's Day) Context: Sudden Onset Timing: Intermittent Quality: Confusion which patient defines as flash forward and explained in the HPI Location: Not applicable Current Severity: Gone Maximum Severity: Moderate Worsened by: Nothing Relieved by: Nothing Associated Symptoms Associated Symptoms: No other symptoms Narrative Narrative: Patient is a 34-year-old male. He presents because confusion. He states he is having flash forwards. When asked to define what he means he stated I do not know how I got to where I am. Patient denies headache, double vision, blurred vision loss of vision. He denies ringing in ears or decreased hearing. He denies trouble with speech. He denies paresthesia, anesthesia or motor weakness. He denies cardiac or respiratory symptoms. He denies GI or symptoms. Patient was in [place] and emphasized that there is a difference in altitude. He told the nurse who told me that he had increased sexual urges as well. He informed me that he saw someone that he dislikes and this was amplified because [place]. He admits to doing Gummies on Father's Day. His symptoms started after he did Gummies. The Gummies were purchased through a friend of a friend of his . Prior similar symptoms: No Recent Illness/Hospitalization: No PFSH PFSH Home Medications ?Medication ?Instructions ?Recorded ?Last Taken ?Type multivitamin 1 cap PO DAILY 08/10/1811/20 History Allergy/AdvReac Type Severity Reaction Status Date / Time No Known Allergies Allergy Verified 12/09/24 08:11 Family History Brother Seizures Grandmother Diabetes Hypertension Heart disease Surgical History [place] teeth extracted History of tonsillectomy Social History (Updated 12/09/24 @ 08:[address] Geoff Salcido MD) Smoking Status: Never smoker alcohol intake: never substance use type: other details: Cannabinoid products what type of physical activity do you participate in: running and weight training frequency: 5-6 times per week ROS ROS ED Constitutional Constitutional ED: Denies chills, fever(s), subjective, sweats or weight loss Eyes Eyes: Denies blurry vision, change in vision or diplopia ENT ENT ED: Denies ear pain, rhinorrhea or sore throat Cardiovascular Cardiovascular: Denies chest pain or palpitations Respiratory/Chest Respiratory/Chest: Denies cough, dyspnea or dyspnea on exertion Gastrointestinal Gastrointestinal: Reports other Details: No change in color, consistency or caliber of his stool. ; Denies abdominal pain, diarrhea, nausea or vomiting Genitourinary Genitourinary ED: Denies dysuria, hematuria or urinary frequency Musculoskeletal Musculoskeletal: Denies arthralgias or myalgias Integumentary Denies abscess, Abrasions or rash Neurologic Neurologic: Denies headache(s) or paresthesias Psychiatric Psychiatric: Reports other Details: Derealization and increased sexual urges ; Denies anxiety or depression Endocrine Endocrinology: Denies cold intolerance or heat intolerance Hematologic/Lymphatic Hematologic/Lymphatic: Reports systems reviewed and no addt'l complaints, except as documented EXAM Physical Exam Const Vital Signs: 12/09/24 08:12 Temperature 97.9 F Temperature Source Temporal Pulse Rate 79 Respiratory Rate 14 Blood Pressure 147/89 H Blood Pressure Mean 108 Pulse Ox 98 Oxygen Delivery Method Room Air Positive well nourished and well developed General Appearance ED: well developed and NAD; Negative for pallor HEENT Reports moist mucous membranes HEENT Narrative: Head is atraumatic normocephalic. Ears normal. External auditory canal normal. TMs are normal. Eyes PERRL and EOMs intact bilaterally General Eye ED: Negative for pale conjunctiva or scleral icterus Neck no lymphadenopathy, supple and no JVD Chest Wall inspection of chest normal and palpation of chest normal Resp normal respiratory effort and clear to auscultation bilaterally Cardio regular rate, regular rhythm, S1 normal heart sound, S2 normal heart sound and no murmurs GI normal to inspection, nondistended, normoactive bowel sounds, non-tender, non- distended and no masses; Negative for hepatosplenomegaly Back/Spine no CVA tenderness Extremity normal to inspection General Extremety ED: Negative for edema or tenderness General Extremity: Negative for edema Neuro oriented x3, CN's II-XII intact bilaterally and no sensory deficits noted Neuro Narrative: There is no dysmetria. Bicep, brachialis, patella and ankle reflex are 1+ and symmetric. There is no clonus. There is no Babinski sign. Sensorium / Orientation: alert Motor Exam: strength 5/5 throughout Psych mental status grossly normal Skin no rashes or lesions noted, no wounds and skin turgor normal General Skin Exam: elasticity normal; Negative for jaundice or pallor MDM MDM MDM Narrative Medical decision making narrative: Suspect this is due to the consumption of Gummies. Will obtain electrolyte panel to assess for hyponatremia, hypocalcemia and possible elevated liver enzymes. CBC to assess white count H&H and differential. Urine tox was not obtained since he admits to doing Gummies. History & Record Review Additional record(s) reviewed:: Prior outpatient record (Urgent care visit offer ed by Remy Torres for fever on September 13, 2019. Outpatient internal medicine exam by Dr. Cam Salas. This was for a [employer] physical.), Prior ED visit (July 2018 for syncope and collapse by Dr. Meyers.) and Prior labs Lab Data Attestation: I reviewed the patient's lab results. Lab results narrative: CBC is normal. Basic metabolic panel is unremarkable. Glucose is slightly elevated 112. Labs: Laboratory Results - last 24 hr 12/09/24 08:30 WBC 6.7 RBC 4.59 L Hgb 13.7 Hct 40.9 MCV 89.1 MCH 29.8 MCHC 33.5 RDW Std Deviation 42.0 RDW Coeff of Silke 12.8 Plt Count 209 MPV 12.6 H Immature Gran % (Auto) 0.300 Neut % (Auto) 56.2 Lymph % (Auto) 28.6 [place] % (Auto) 12.0 H Eos % (Auto) 1.6 Baso % (Auto) 1.3 H Absolute Neuts (auto) 3.7 Absolute Lymphs (auto) 1.91 Nucleated RBC % 0 Sodium 142 Potassium 4.1 Chloride 107 Carbon Dioxide 24.8 Anion Gap 10 BUN 14 Creatinine 0.87 Estim Creat Clear Calc 148.39 Est GFR (MDRD) Non-Af 117 BUN/Creatinine Ratio 15.6 Glucose 112 H Calcium 9.8 Total Bilirubin 0.46 AST 34 ALT 59 H Alkaline Phosphatase 84 Total Protein 6.9 Albumin 4.3 Globulin 2.6 Albumin/Globulin Ratio 1.7 Treatment and Re-Evaluation :: Patient was informed of his results. He has not anything to eat since last evening. He was instructed follow-up with his doctor because of the elevated blood sugar. Also to discuss his fast forward symptoms if this continues. Furthermore with no history of hypertension and no evidence of endorgan dysfunction treatment is not emergent. This could be initiated by his PCP and confirm that his blood pressure is elevated. Discharge Plan Triage Chief Complaint: Confusion ED Provider: Geoff Salcido Dx/Rx/DC Orders Clinical Impression: Altered self perception, Nondiabetic hyperglycemia, Elevated blood-pressure reading without diagnosis of hypertension Instructions: Mind-Body Therapy, ED Hypertension, To Be Confirmed, ED Hyperglycemia New Poss Diabetes Prescriptions: No Action multivitamin capsule 1 cap PO DAILY Primary Care Provider: Rocio Harry Referrals: Rocio Harry, DO [Primary Care Provider] - 1-2 Weeks Print Language: Bhutanese Disposition Disposition: Home, Self Care
[2024-12-09 09:18] LABS: ALB/GLOB Ratio 1.7 RATIO (0.9-2.4); AST(SGOT) 34 U/L (<=37); Alanine Aminotransfer ALT/SGPT 59 U/L (<=46); Albumin, Serum 4.3 g/dL (3.5-5.0); Alkaline Phosphatase 84 U/L (40-129); Anion Gap 10 (5-15); BUN 14 mg/dL (4-19); BUN/Creat Ratio 15.6 RATIO (10-20); Calcium,Total 9.8 mg/dL (7.6-11.0); Carbon Dioxide 24.8 mmol/L (21.0-32.0); Chloride 107 mmol/L (98-108); Creatinine, Serum 0.87 mg/dL (0.70-1.20); EST Glomerular Filtration Rate 117 (>60); Estimated Creatinine Clearance 148.39 ml/min (50-250); Globulin 2.6 g/dL (2.2-4.2); Glucose 112 mg/dL (70-99); Potassium 4.1 mmol/L (3.3-5.1); Protein, Total 6.9 g/dL (5.9-8.4); Sodium Level 142 mmol/L (133-145); Total Bilirubin 0.46 mg/dL (0.00-1.30)
[2024-12-09 09:34] VITALS: BP 135/83; PULSE 53; RESP 16; TEMP 36.6; O2SAT 99
== END 2024-12-09 09:35 | disposition home or self-care (01) ==
PROVIDERS: Emergency Provider Emergency Medicine; PCP Family Medicine; Visit Provider Emergency Medicine
DX: R40.4 Transient alteration of awareness (principal); R41.0 Disorientation, unspecified; R73.9 Hyperglycemia, unspecified; R03.0 Elevated blood-pressure reading, without diagnosis of hypertension
CPT/HCPCS: 80053; 85025; 99283; A4216